=== PATIENT | male | born 1955 | race Caucasian/White ===

== ENCOUNTER 2018-07-18 07:59 | Emergency (ER) | payer BC ==
[~2018-07-18] VITALS: Ht 188 cm; Wt 116.8 kg
[2018-07-18 08:44] LABS: BASO # 0.1 (0.0-0.2); BASO % 0.7 % (0.0-2.0); EOS # 0.1 (0.0-0.7); EOS % 0.8 % (0-4.0); GRAN % 81.5 % (42.2-75.2); HEMATOCRIT 36.4 % (42.0-52.0); HEMOGLOBIN 12.2 g/dl (13.5-18.0); LYMPH # 0.8 (1.2-3.4); LYMPH % 11.3 % (20.0-51.0); MEAN CELL VOLUME 98 fl (80.0-100.0); MEAN CORPUSCULAR HEMOGLOBIN 33 pg (27.0-31.0); MEAN CORPUSCULAR HGB CONC 34 g/dl (33.0-37.0); MEAN PLATELET VOLUME 9.9 fl (7.4-10.4); MONO # 0.4 (0.1-0.6); MONO % 5.4 % (1.7-9.3); PLATELET COUNT 145 K/mm3 (130-400); RED BLOOD COUNT 3.71 M/mm3 (4.20-5.60); REDCELL DISTRIBUTION WIDTH-CV 12.9 % (11.5-14.5)
[2018-07-18 08:53] LABS: ALBUMIN 4.1 gm/dL (3.5-5.0); BILIRUBIN,TOTAL 0.6 mg/dL (0.0-1.0); CALCIUM 8.8 mg/dL (8.4-10.2); CREATININE, serum 0.99 mg/dL (0.66-1.25); POTASSIUM 4.2 mmol/L (3.4-5.0)
[2018-07-18 08:59] LABS: INR 1.1 (0.8-3.0); PROTHROMBIN TIME 12.3 SECONDS (9.7-12.8)
[2018-07-18 09:02] LABS: PARTIAL THROMBOPLASTIN TIME 25.7 SECONDS (26.0-37.0)
[2018-07-18] MEDS ORDERED: NORVASC 10MG10 MG PO (10:17)
[2018-07-18] MEDS ORDERED: OLMESARTAN HCTZ PO (10:17)
[2018-07-18] MEDS ORDERED: ASPIRIN 81M81 MG/TA2 PO (10:18)
[2018-07-18] MEDS ORDERED: BYSTOLIC5 MG PO (10:18)
[2018-07-18] MEDS ORDERED: COSAMIN DS 4001 TAB PO (10:19)
[2018-07-18] MEDS ORDERED: FLONASE NASAL S16 GM NAS (10:19)
[2018-07-18 12:23] VITALS: BP 140/59; PULSE 65; TEMP 97.3
== END 2018-07-18 12:24 | disposition home or self-care (01) ==
LOC: COL.ER 07:59
PROVIDERS: Emergency Medicine
DX: K64.9 Unspecified hemorrhoids (principal); K92.2 Gastrointestinal hemorrhage, unspecified; I10 Essential (primary) hypertension; Z79.82 Long term (current) use of aspirin
CPT/HCPCS: J7030

== ENCOUNTER → 2023-02-15 | Outpatient (CLI) | payer BC ==
[~2023-02-15] MED LIST: ASPIRIN 81M81 MG/TA2 PO; BYSTOLIC5 MG PO; COSAMIN DS 4001 TAB PO; FLONASE NASAL S16 GM NAS; NORVASC 10MG10 MG PO; OLMESARTAN HCTZ PO
== END ==
LOC: COL.RAD 12:58
DX: M51.16 Intervertebral disc disorders with radiculopathy, lumbar region (principal); M48.061 Spinal stenosis, lumbar region without neurogenic claudication; M47.26 Other spondylosis with radiculopathy, lumbar region; N28.89 Other specified disorders of kidney and ureter

== ENCOUNTER → 2023-02-16 | Outpatient (CLI) | payer BC | LOC: COL.RAD 12:42 | DX: N28.89 Other specified disorders of kidney and ureter (principal) | CPT/HCPCS: Q9967 ==